=== PATIENT | male | born 1935 | race Caucasian/White ===

== ENCOUNTER 2017-02-04 02:59 | Inpatient (IN) ==
[2017-02-04] MEDS ORDERED: ASPIRIN PO STA (03:08)
[2017-02-04 03:28] LABS: MANUAL DIFF NEEDED? NO
[2017-02-04 03:33] LABS: BASO% 0.2 % (0.0-0.8); EOS# 0.08 X1000 (0.0-0.7); EOS% 1.5 % (0.0-10.0); HEMATOCRIT 38.9 % (42.0-52.0); HEMOGLOBIN 13.4 g/dL (14.0-18.0); LYMPH# 0.66 X1000 (1.2-3.4); LYMPH% 12.3 % (20.5-51.1); MCH 30.7 PG (27-31); MCHC 34.4 g/dL (33-37); MONO# 0.23 X1000 (0.11-0.59); MONO% 4.3 % (1.7-9.3); MPV 11.4 FL (7.4-10.4); NEUT% 81.7 % (42.2-75.2); PLT 115 X1000 (130-400); RBC 4.37 XMIL (4.7-6.1)
[2017-02-04 03:43] LABS: INR 1.01; PROTIME 10.6 Seconds (9.2-11.7); PTT 22.1 Seconds (22.0-36.0)
[2017-02-04 03:50] LABS: CALCIUM 9.9 mg/dL (8.8-10.2); MAGNESIUM 2.1 mg/dL (1.5-2.7); POTASSIUM 4.6 mmol/L (3.5-5.1); TOTAL BILIRUBIN 0.67 mg/dL (0.20-1.00); TOTAL PROTEIN 6.4 g/dL (6.3-8.3)
[2017-02-04] MEDS ORDERED: ZITHROMAX 500 MG/NS 500 MG/250 ML IVPB IV ONE (04:59)
[2017-02-04] MEDS ORDERED: ROCEPHIN 1 GM in NS 50 ML IV ONE (05:00)
--- NOTE | 2017-02-04 05:08 | PROVIDER DOCUMENTATION ---
HPI-General Adult - General Chief Complaint: Shortness of Breath Stated Complaint: SOB CHEST PAIN Time Seen by Provider: 02/04/17 03:08 Source: patient, EMS Unable to obtain history due to:: urgency Allergies/Adverse Reactions: Patient Allergies Allergy/AdvReac Type Severity Reaction Status Date / Time No Known Allergies Allergy Verified 02/04/17 03:10 Home Medications: Home Medication List Medication Instructions Recorded Confirmed Last Taken Type Pregabalin [Lyrica] 50 mg PO QAM 03/19/12 10/06/16 10/06/16 History Simvastatin 40 mg PO QAM 03/19/12 10/06/16 10/06/16 History Trazodone [Desyrel] 100 mg PO QHS 03/19/12 10/06/16 10/05/16 History Aspirin 81 mg PO DAILY 02/07/16 10/06/16 10/06/16 History Omeprazole 20 mg PO DAILY 02/07/16 10/06/16 10/06/16 History Solifenacin Succinate [Vesicare] 5 mg PO DAILY 02/07/16 10/06/16 10/06/16 History Isosorbide Mononitrate E.r. [Imdur] 30 mg PO DAILY #0 tablet 02/08/16 10/06/16 10/06/16 Rx Metformin [Glucophage] 2 tab PO HS 02/08/16 10/06/16 10/05/16 History Albuterol Sulfate [Albuterol 8.5 gm IH Q4-6H PRN PRN #1 10/06/16 Unknown Rx Sulfate Hfa] hfa.aer.ad Albuterol Sulfate [Ventolin Hfa] 18 gm IH PRN PRN #1 hfa.aer.ad 10/06/16 Unknown Rx Amlodipine Besylate [Norvasc] 5 mg PO DAILY 10/06/16 10/06/16 10/06/16 History Guaifenesin E.r. [Mucinex] 600 mg PO Q12HR #30 tablet 10/06/16 Unknown Rx Losartan Potassium 50 mg PO DAILY 10/06/16 10/06/16 10/06/16 History - History of Present Illness -Gen Adult Nature of Presenting Problems: Non productive cough and dyspnea for few days. Says it feels like when he had pneumonia before. Complains of pleuritic chest pain. Denies any nausea, vomiting or diarrhea. Location of Pain/Injury: reports: none Pain Radiation: reports: no radiation Quality of Pain: reports: aching Onset/Duration: reports: 3 days ago Timing: reports: still present Context/Activities at Onset: reports: light activity Modifying Factors: improves with: nothing Associated Symptoms: reports: cough, muscle aches, shortness of breath, weakness Similar Symptoms Previously?: Yes Recently seen or treated by another doctor?: Yes - Diabetes Related Context Context: denies: low blood sugar - Sickle Cell Pain Related Context Sickle Cell Pain Location: reports: none Review of Systems - Adult - REVIEW OF SYSTEMS - ADULT Constitutional: reports: see HPI Eyes: reports: no symptoms reported Ears, Nose, Mouth & Throat: reports: no symptoms reported Cardiovascular: reports: no symptoms reported Respiratory: reports: see HPI, cough, dyspnea on exertion, pleurisy, shortness of breath Gastrointestinal: reports: no symptoms reported Genitourinary: reports: no symptoms reported Integumentary: reports: no symptoms reported Neurological: reports: no symptoms reported Psychiatric: reports: no symptoms reported Endocrine: reports: no symptoms reported Hematologic/Lymphatic: reports: no symptoms reported Allergic/Immunologic: reports: no symptoms reported All Other Systems: Reviewed and Negative Past History - Adult - PAST MEDICAL HISTORY-ADULT Review of Records: reports: Old Records Reviewed, Nursing Assessment Review, Medications Reviewed, Social history reviewed & non-contributory. Major Childhood Illnesses: reports: history unknown Cardiovascular: reports: HTN, hyperlipidemia Respiratory: reports: sleep apnea Gastrointestinal: reports: GERD, obstruction Endocrine/Immune: reports: cancer (skin) Other Conditions: reports: other (Skin CA) - PRIOR SURGERIES/PROCEDURES Surgical/Procedure History: reports: cholecystectomy, other (Skin CA removed/ cataract removal/intestinal resection) - PRIOR HOSPITALIZATIONS Prior Hospitalizations: reports: none - IMMUNIZATION STATUS Childhood Immunizations: UTD Flu Vaccine: See Nurse Assessment Physical Exam-General - PHYSICAL EXAM-ADULT Initial Vital Signs Reviewed: Yes - CONSTITUTIONAL General Appearance: appears well - EYES Eyes: PERRL/EOMI - HEAD, EARS, NOSE, MOUTH & THROAT HENMT: normocephalic/atraumatic - NECK Neck: non-tender - RESPIRATORY Respiratory: crackles, rales, rhonchi, dull on percussion - CARDIOVASCULAR Cardiovascular: normal peripheral pulses, regular rate, rhythm - GASTROINTESTINAL (ABDOMEN) Abdominal Exam: normal bowel sounds, non tender - LYMPHATIC Lymphatic: no adenopathy - MUSCULOSKELETAL Back Exam: normal inspection Extremity: normal range of motion - SKIN Integumentary: normal color, normal turgor - NEUROLOGIC Neurologic: boiler fitter II-XII nml as tested, grossly normal - PSYCHIATRIC Psych/Mental Status: normal mood/affect, normal thought content Progress - PLAN OF CARE/RESULTS Progress/Plan/Lab Results: Vital Signs - 8 hr 02/04/17 03:05 Temperature 97.7 F Pulse Rate 87 Respiratory Rate 21 Blood Pressure 145/73 O2 Sat by Pulse Oximetry 93 L Laboratory Results - last 24 hr 02/04/17 02/04/17 02/04/17 03:14 03:14 03:14 WBC 5.37 RBC 4.37 L Hgb 13.4 L Hct 38.9 L MCV 89.0 MCH 30.7 MCHC 34.4 RDW Std Deviation 12.6 Plt Count 115 L MPV 11.4 H Immature Gran % (Auto) 0.0 Neut % (Auto) 81.7 H Lymph % (Auto) 12.3 L [place] % (Auto) 4.3 Eos % (Auto) 1.5 Baso % (Auto) 0.2 Immature Gran # (Auto) 0.00 Neut # (Auto) 4.39 Lymph # (Auto) 0.66 L [place] # (Auto) 0.23 Eos # (Auto) 0.08 Baso # (Auto) 0.01 PT INR PTT (Actin FS) Sodium 140 Potassium 4.6 Chloride 103 Carbon Dioxide 26 Anion Gap 11 BUN 18 Creatinine 1.3 H Estimated GFR/1.73 m2 53 BUN/Creatinine Ratio 14 Glucose 170 H Calculated Osmolality 285 Calcium 9.9 Magnesium 2.1 Total Bilirubin 0.67 AST 17 ALT 14 Alkaline Phosphatase 105 Creatine Kinase 58 Troponin T Uoo-E-Juaghlgmfos Pept 362 Total Protein 6.4 Albumin 4.0 Globulin 2.4 Albumin/Globulin Ratio 1.7 Plasma Lactate 02/04/17 02/04/17 02/04/17 03:14 03:14 03:14 WBC RBC Hgb Hct MCV MCH MCHC RDW Std Deviation Plt Count MPV Immature Gran % (Auto) Neut % (Auto) Lymph % (Auto) [place] % (Auto) Eos % (Auto) Baso % (Auto) Immature Gran # (Auto) Neut # (Auto) Lymph # (Auto) [place] # (Auto) Eos # (Auto) Baso # (Auto) PT 10.6 INR 1.01 PTT (Actin FS) 22.1 Sodium Potassium Chloride Carbon Dioxide Anion Gap BUN Creatinine Estimated GFR/1.73 m2 BUN/Creatinine Ratio Glucose Calculated Osmolality Calcium Magnesium Total Bilirubin AST ALT Alkaline Phosphatase Creatine Kinase Troponin T < 0.010 Ycy-[id number]-Pwmlbxpmwhn Pept Total Protein Albumin Globulin Albumin/Globulin Ratio Plasma Lactate 2.9 H Orders Category Date Time Status Cardiac Monitoring DIRECTED Care 02/04/17 03:08 Active Oxygen Therapy- ED Nursing DIRECTED Care 02/04/17 03:08 Active Saline Loc NOW Care 02/04/17 03:08 Active CHEST-PORTABLE [RAD] Stat Exams 02/04/17 03:09 Taken BLOOD CULTURE [BLDCUL] Stat Lab 02/04/17 03:15 Results CBC WITH ELECTRONIC DIFF [HEME] Stat Lab 02/04/17 03:14 Completed CK PROFILE [SP CHEM] Stat Lab 02/04/17 03:14 Completed COMPREHENSIVE METABOLIC PANEL [CHEM] Stat Lab 02/04/17 03:14 Completed LACTATE, PLASMA [CHEM] Stat Lab 02/04/17 03:14 Completed MAGNESIUM [CHEM] Stat Lab 02/04/17 03:14 Completed PRO B-NATRIURETIC PEPTIDE Stat Lab 02/04/17 03:14 Completed PROTIME WITH INR [COAG] Stat Lab 02/04/17 03:14 Completed PTT [COAG] Stat Lab 02/04/17 03:14 Completed TROPONIN T Stat Lab 02/04/17 03:14 Completed Aspirin Med 02/04/17 03:08 Discontinued 325 mg PO STAT STA Azithromycin 500 mg/Ns [Zithromax 500 mg/Ns] Med 02/04/17 04:59 Active 500 mg in 250 ml IV NOW CefTRIAXONE [Rocephin] 1 gm Med 02/04/17 05:00 Active 0.9% Sodium Chloride Inj [Ns] 50 ml IV NOW EKG [EKG] Stat Ther 02/04/17 03:02 Ordered EKG [EKG] Stat Ther 02/04/17 03:08 Ordered Result Diagrams: 02/04/17 03:14 02/04/17 03:14 - XRAY 1 XRAY Study: Chest Impression: Abnormal XRAY Interpretation: right sided infiltrates Departure - Departure Date of Disposition Decision: 02/04/17 Time of Disposition Decision: 05:07 DIAGNOSIS: Pneumonia Disposition: ADMITTED INPATIENT 09 Certified Medical Emergency: Emergent Condition: Stable Referrals and Follow-Ups: None,PCP [Primary Care Provider] - - Critical Care Note This patient required my direct & personal management of CC.: No Attestation - Physician/ GREG Attestation The physician spent face to face time with patient:: Yes Advanced Practice Provider documentation review:: Supervising physician onsite and consulted in the evaluation and care of this patient. The physician did have a face to face encounter with the patient.
--- NOTE | 2017-02-04 06:43 | EKG Report ---
Test Performed on : 02/04/2017 02:58:09 AM Test Reason : SOB Blood Pressure : / mmHG Vent. Rate : 086 BPM Atrial Rate : 086 BPM P-R Int : 228 ms QRS Dur : 156 ms QT Int : 424 ms P-R-T Axes : 057 -74 046 degrees QTc Int : 507 ms Sinus rhythm. with 1st degree AV block. with premature atrial complexes. with aberrant conduction. Left axis deviation Right bundle branch block Septal infarct , age undetermined Abnormal ECG When compared with ECG of 08-FEB-2016 10:45, aberrant conduction. is now present Vent. rate has increased BY 30 BPM T wave inversion no longer evident in Inferior leads T wave inversion now evident in Anterior leads Unconfirmed Result
--- NOTE | 2017-02-04 06:47 | HISTORY AND PHYSICAL ---
PRIMARY CARE PHYSICIAN: Qasim Li MD CHIEF COMPLAINT: Cough and chills times several days. HISTORY OF PRESENTING ILLNESS: This is a 81-year-old male with a history of hypertension, diabetes mellitus type 2, hyperlipidemia, COPD and sleep apnea. Presented to the emergency department with several days' history of having shortness of breath, cough and chills. He states that the cough was nonproductive; however, he was having worsening chills and subsequently had come to the emergency department. In the ER, he was evaluated and due to his presenting symptoms, it was thought that he would need admission for further management. At the time of my examination, he had denied any headache, nausea, vomiting, diarrhea, chest pain, hemoptysis, or melena but complained of having chills and cough. PAST MEDICAL HISTORY: Hypertension, diabetes mellitus type 2, hyperlipidemia, GERD, COPD, sleep apnea. PAST SURGICAL HISTORY: Colectomy, hernia repair, cholecystectomy. ALLERGIES: No known drug allergies. CURRENT MEDICATIONS: As listed in the medication reconciliation sheet. SOCIAL HISTORY: Denies any history of smoking. History of alcohol abuse in the past. Denies any illicit drug use. FAMILY HISTORY: No history of coronary disease. REVIEW OF SYSTEMS: Twelve point review of systems is listed as in HPI. Other systems negative. PHYSICAL EXAMINATION: GENERAL: Cooperative, friendly male. He is resting comfortably. VITAL SIGNS: Temperature 97.7 degrees, pulse 87, respiration 21, blood pressure 145/73. HEENT: Atraumatic, normocephalic. Extraocular movements intact. PERRLA. NECK: No masses. CHEST: Bibasilar rales. CARDIOVASCULAR: Regular rate and rhythm. ABDOMEN: Soft, obese, positive bowel sounds. EXTREMITIES: Trace edema. NEURO: He is awake, alert, oriented x3. : No bladder distention. SKIN: Warm. LABORATORIES AND STUDIES: WBCs 5.37, hemoglobin 13.4, hematocrit 38.9, platelets 115,000. Sodium 140, potassium 4.6, chloride 103, CO2 of 26, BUN is 18, creatinine is 1.3, glucose is 170, lactate is 2.9. ASSESSMENT: A 81-year-old obese male with a history of hypertension, diabetes mellitus type 2, hyperlipidemia, and GERD had presented to the emergency department with several days' history of having some chills and cough. He states the symptoms were worsening. He was evaluated in the emergency department. He had imaging done, and was read by emergency room physician as suspected left lower lobe pneumonia. Due to his presenting symptoms, he will need hospitalization for further management. 1. Pneumonia. 2. Early sepsis with elevation in lactate and the symptoms of chills and possible source of infection. 3. Hypertension. 4. Diabetes mellitus type 2. PLAN: 1. We will admit patient to medical floor with telemetry. 2. We will check blood cultures. Start patient on IV antibiotics. 3. We will monitor blood pressure. Resume antihypertensive agent. 4. We will monitor blood glucose and put patient on glycemic protocol. 5. Put patient on DVT prophylaxis with SCDs. 6. We will continue to follow and reassess. cc: MD Qasim Rodriguez MD
--- NOTE | 2017-02-04 07:49 | Diag Imaging Result Doc PS360 ---
CHEST-PORTABLE - 02/04/2017 INDICATION: sob TECHNIQUE: COMPARISON: 10/06/2016 FINDINGS: There are new extensive alveolar infiltrates in the right midlung and lung base. Heart size is top normal. No pneumothorax or large effusion. IMPRESSION: Multilobar pneumonia in the right lung. Recommend treatment and follow-up x-rays until clear. Electronically signed by Bowen Salgado 02/04/2017 7:47 AM
[2017-02-04] MEDS: ASPIRIN PO SCH (08:18)
[2017-02-04] MEDS: ZOCOR PO SCH (08:18)
[2017-02-04] MEDS: TENORMIN PO SCH (08:19)
[2017-02-04] MEDS: VESICARE PO SCH (08:19)
[2017-02-04] MEDS: COZAAR PO SCH (08:19)
[2017-02-04] MEDS: PRILOSEC PO SCH (08:19)
[2017-02-04] MEDS: LYRICA PO SCH (08:19)
[2017-02-04] MEDS: NORVASC PO SCH (08:19)
[2017-02-04] MEDS: LEVAQUIN 750 MG in NS 150 ML IV SCH (08:57)
[2017-02-04] MEDS: LOVENOX SUBQ SCH (17:03)
[2017-02-04] MEDS: MIRALAX PO SCH (17:06)
--- NOTE | 2017-02-04 17:07 | PROGRESS NOTE ---
DATE: 02/04/2017 SUBJECTIVELY: Mr. Marinelli is doing fair. Admitted with fever, chills, cough, chest congestion. Chest x-ray revealed pneumonia. Admission history and physical noted. The patient evaluated. Patient is doing better. Current medications, admission order noted. I started him on DVT prophylaxis. Resume his MiraLAX. Added Rocephin. Continue Levaquin. Added bronchodilator treatment. We will check hemoglobin A1c level. Monitor Accu-Chek. Continue rest of the treatment and close observation. Overall plan discussed with the patient and he is in agreement. cc: Qasim Li MD
[2017-02-04] MEDS ORDERED: NORCO-5 PO PRN (17:09)
[2017-02-04] MEDS: ADVAIR 250/50 DISKUS INH SCH (19:10)
[2017-02-04] MEDS: DESYREL PO SCH (20:42)
[2017-02-04] MEDS: HUMALOG SUBQ SCH (22:38)
[2017-02-05] MEDS: ROCEPHIN 1 GM in NS 50 ML IV SCH (05:22)
[2017-02-05 06:23] LABS: MANUAL DIFF NEEDED? NO
[2017-02-05] MEDS: HUMALOG SUBQ SCH ×4 (06:29→20:15)
[2017-02-05 06:42] LABS: EOS# 0.05 X1000 (0.0-0.7); EOS% 0.7 % (0.0-10.0); HEMATOCRIT 34.5 % (42.0-52.0); HEMOGLOBIN 11.8 g/dL (14.0-18.0); IMM GRAN# 0.02 X1000 (0.0-0.04); IMM GRAN% 0.3 % (0.0-0.5); LYMPH# 0.85 X1000 (1.2-3.4); LYMPH% 11.9 % (20.5-51.1); MCH 30.7 PG (27-31); MCHC 34.2 g/dL (33-37); MCV 89.8 FL (81-99); MONO# 0.55 X1000 (0.11-0.59); MONO% 7.7 % (1.7-9.3); MPV 11.8 FL (7.4-10.4); NEUT% 79.4 % (42.2-75.2); PLT 98 X1000 (130-400); RBC 3.84 XMIL (4.7-6.1)
[2017-02-05 06:54] LABS: CALCIUM 9.4 mg/dL (8.8-10.2); POTASSIUM 4.1 mmol/L (3.5-5.1)
--- NOTE | 2017-02-05 07:05 | PROGRESS NOTE ---
DATE: 02/05/2017 SUBJECTIVE: Mr. Marinelli is doing well. He does have some cough and chest congestion. No high- grade fever or chills. Denied any nausea or vomiting. No runny nose, stuffy nose. No dysuria or hematuria. Admission history and physical noted. The patient does have chronic pain, being followed up by pain clinic. PAST MEDICAL HISTORY: Hypertension, hyperlipidemia, NIDDM, osteoarthritis, morbid obesity. PHYSICAL EXAMINATION: Vital Signs: His vital signs noted. Neck: Supple. No JVD. Lungs: Bibasilar crepitations. Occasional wheezing. CVS: S1 and S2 heard. Abdomen: Soft, globular. Bowel sounds present. Extremities: No cyanosis, clubbing. No acute DVT. ANIMATION ARTIST: Alert, awake. Able to move all 4 limbs. CONSIDERATION: 1. Multilobar pneumonia in the right lung. The patient is on intravenous Rocephin and Levaquin. 2. Chronic obstructive pulmonary disease. 3. Morbid obesity. 4. Hypertension. 5. Chronic pain due to postherpetic neuralgia. 6. Gastritis and reflux disease. 7. Sleep apnea. The patient is on CPAP. PLAN: Patient's a.m. blood work is pending. We will continue current treatment and close observation. Encourage patient out of bed to chair, ambulation. Overall plan discussed at length with the patient and he is in agreement. I am going to resume his CPAP as per home settings. cc: Qasim Li MD
[2017-02-05] MEDS: ADVAIR 250/50 DISKUS INH SCH ×2 (08:33→19:23)
[2017-02-05] MEDS: LEVAQUIN 750 MG in NS 150 ML IV SCH (08:59)
[2017-02-05] MEDS: COZAAR PO SCH (09:01)
[2017-02-05] MEDS: NORVASC PO SCH (09:01)
[2017-02-05] MEDS: PRILOSEC PO SCH (09:01)
[2017-02-05] MEDS: LYRICA PO SCH (09:01)
[2017-02-05] MEDS: TENORMIN PO SCH (09:01)
[2017-02-05] MEDS: VESICARE PO SCH (09:01)
[2017-02-05] MEDS: ZOCOR PO SCH (09:01)
[2017-02-05] MEDS: ASPIRIN PO SCH (09:01)
[2017-02-05] MEDS: MIRALAX PO SCH (09:02)
[2017-02-05] MEDS: LOVENOX SUBQ SCH (16:54)
[2017-02-05] MEDS: DESYREL PO SCH (20:17)
[2017-02-06] MEDS: ROCEPHIN 1 GM in NS 50 ML IV SCH (04:42)
[2017-02-06] MEDS: HUMALOG SUBQ SCH ×2 (06:13→10:46)
--- NOTE | 2017-02-06 07:23 | Diag Imaging Result Doc PS360 ---
CHEST-1 VIEW - 02/06/2017 INDICATION: hypoxia TECHNIQUE: COMPARISON: 02/04/2017 FINDINGS: There is significant improvement in the multifocal alveolar infiltrate at the right midlung and base. No new infiltrates. Heart size remains top normal. Probable trace pleural effusion. IMPRESSION: Significant improvement in the bronchopneumonia in the right lung. Electronically signed by Bowen Salgado 02/06/2017 7:21 AM
[2017-02-06] MEDS: ADVAIR 250/50 DISKUS INH SCH (08:19)
[2017-02-06] MEDS: ASPIRIN PO SCH (09:06)
[2017-02-06] MEDS: ZOCOR PO SCH (09:06)
[2017-02-06] MEDS: COZAAR PO SCH (09:06)
[2017-02-06] MEDS: LYRICA PO SCH (09:06)
[2017-02-06] MEDS: TENORMIN PO SCH (09:06)
[2017-02-06] MEDS: VESICARE PO SCH (09:06)
[2017-02-06] MEDS: PRILOSEC PO SCH (09:07)
[2017-02-06] MEDS: NORVASC PO SCH (09:07)
[2017-02-06] MEDS: MIRALAX PO SCH (09:07)
--- NOTE | 2017-02-06 09:08 | PROGRESS NOTE ---
DATE: 02/06/2017 SUBJECTIVELY: Mr. Marinelli is doing better. Chest congestion and cough improved. No high-grade fever or chills. The patient is ambulating well. Using his bronchodilator care OBJECTIVE: Vital signs: Noted. Neck: Supple. No JVD. Lungs: Bilateral good air entry present. CVS: S1 and S2 heard. Abdomen: Soft, globular. Bowel sounds present. CRYSTAL GAZER: Alert, awake able to move all 4 limbs. LABORATORY: Labs done yesterday noted. White count was 7.17, hemoglobin 11.8, hematocrit 34.5. Blood culture negative. I repeated a chest x-ray today. CONSIDERATIONS: Problem includes: 1. Pneumonia. 2. [id number] diabetes mellitus 3. Hypertension. 4. Hyperactive bladder. PLAN: Overall patient is doing well. I am planning to discharge patient home today after reviewing chest x-ray, overall discharge plan discussed at length with the patient. Continue home medicine. Monitor blood pressure and Accu-Chek at home. Follow up with me in a week to 10 days and we will repeat chest x-ray. cc: Qasim Li MD
[2017-02-06] MEDS: LEVAQUIN 750 MG in NS 150 ML IV SCH (09:23)
[2017-02-06 14:42] VITALS: BP 149/76
== END 2017-02-06 15:17 | disposition home or self-care (01) ==
LOC: ED 02:59 → SUPCPDRO 06:29 → EDIPHOLD 06:29 → SUATTDRO 06:29 → 4N 13:03
PROVIDERS: ADMIT Internal Medicine; ATTEND Internal Medicine